=== PATIENT | male | born 1980 | race Caucasian/White ===

== ENCOUNTER 2019-12-17 23:16 | Inpatient (IN) | payer MEDICAID, SELFPAY ==
[2019-12-18] VITALS (15 sets, daily range): BP systolic 92–128; BP diastolic 47–81; PULSE 79–98; RESP 12–20; TEMP 36.1–36.8; O2SAT 95–100; BMI 32.0; BMI 26.6
--- NOTE | 2019-12-18 00:09 | CT_ITS ---
EXAMINATION: CT ABDOMEN AND PELVIS WITHOUT CONTRAST CLINICAL INFORMATION: Left flank pain COMPARISON: None TECHNIQUE: Multidetector volumetric imaging was performed from the superior aspect of the liver through the pubic symphysis. Sagittal and coronal reformatted images were obtained on the technologist's workstation. This CT examination was performed using dose optimization techniques as appropriate, variously including the following: *Automated exposure control *Adjustment of mA and/or kV according to patient size (this includes techniques or standardized protocols for targeted exams where dose is matched to indication/reason for exam; i.e. extremities or head) *Use of iterative reconstruction technique DLP: 443 mGy-cm FINDINGS: LUNG BASES: The visualized lung bases are unremarkable. LIVER, GALLBLADDER, AND BILIARY TREE: The liver is normal in size, shape, and attenuation. No focal hepatic lesion or biliary ductal dilatation is present. Calcification/clips along the posterior margin of the right lobe of the liver inferiorly. The gallbladder is unremarkable with no evidence of radiopaque gallstones, gallbladder wall thickening, or obvious pericholecystic inflammatory changes. PANCREAS: Unremarkable. SPLEEN: Unremarkable. ADRENAL GLANDS: The left adrenal gland is unremarkable. The right adrenal gland is absent. KIDNEYS AND URETERS: Absent right kidney. The left kidney is normal in size. There is mild left hydroureteronephrosis. There is a 0.3 cm calculus at the left ureterovesicular junction. BLADDER: Unremarkable. GASTROINTESTINAL TRACT: The stomach is unremarkable. Normal caliber small bowel. No obstruction. Normal appendix. No colonic wall thickening or inflammatory change. No free air. No free fluid. ABDOMINAL WALL: No significant hernia is appreciated. LYMPH NODES: Normal. VASCULAR: Unremarkable. PELVIC VISCERA: The prostate and seminal vesicles are unremarkable. OSSEOUS STRUCTURES: No acute or suspicious osseous abnormality. Mild scoliotic curvature of the spine. CT/CT abdomen pelvis wo con IMPRESSION: Mild left hydroureteronephrosis with a 0.3 cm obstructing calculus at the ureterovesicular junction.
--- NOTE | 2019-12-18 00:10 | ED.ABDPAIN ---
HPI - Abdominal Pain General Chief Complaint: General Medical Stated Complaint: ?KIDNEY STONES Time Seen by Provider: 12/18/19 00:08 Source: patient Mode of arrival: ambulatory Limitations: no limitations History of Present Illness MD elicited complaint: flank pain Pertinent past history: kidney stones Onset (ago): hour(s) (just past couple of hours) Pain Consistency: constant Location: L flank Severity: moderate Quality: sharp Radiation: LLQ Migration to: no migration Exacerbating factors: nothing Relieving factors: nothing Context: history of similar episodes Associated symptoms: nausea and vomiting Related Data Home Medications Medication Instructions Recorded Confirmed No Known Home Meds 12/18/19 12/18/19 Allergies Allergy/AdvReac Type Severity Reaction Status Date / Time codeine Allergy Itching Verified 12/18/19 00:08 Review of Systems Review of Systems Constitutional : No Fever, No Chills ENT/Mouth : No sore throat Eyes: No Eye Pain, No Swelling, No Redness Cardiovascular : No Chest Pain, No SOB Respiratory : No Cough, No Sputum, No Wheezing Gastrointestinal : positive Nausea, positive Vomiting, No Diarrhea, positive abdominal pain Genitourinary : no Dysuria, no urinary frequency, no Hematuria, positive Flank Pain, positive hesitancy Musculoskeletal : No joint pain, No Myalgias Skin : No Skin Lesions, No rash Neuro : No Weakness, No Numbness, No Headache Psych : No Anxiety/Panic, No Depression Heme/Lymph: No Bruising, No Lymphadenopathy Endocrine : No Polyuria, No Polydipsia All other systems reviewed and are negative Physical Exam Vital Signs: Vital Signs: Vital Signs Temp Pulse Resp BP Pulse Ox 12/18/19 04:45 91 16 105/64 98 12/18/19 02:30 91 16 110/64 98 12/18/19 01:01 81 16 128/81 12/18/19 00:15 88 16 108/66 98 12/18/19 00:11 98 F 85 16 96 Body Mass Index 32.0 Appearance: Alert. Oriented X3. in pain, mild acute distress. Eyes: Pupils equal, round and reactive to light. ENT: Pharynx normal. Neck: Normal inspection. Neck supple. CVS: Normal heart rate and rhythm. Pulses normal. Respiratory: No respiratory distress. Breath sounds normal. Abdomen: Soft and mild left side abdominal ttp Skin: Skin warm and dry. Normal skin color. Normal skin turgor. Extremities: No lower extremity edema. No calf ttp Neuro: Oriented X 3. No motor deficit. No sensory deficit. Course Course Course Narrative: given one kidney and unable to urinate will continue to observe and may need Urology call in AM for extraction, patient aware, pain free. patient did urinate but Cr came back at 2.5 after 1.5L of fluids, denies knowing any prior history of this, records from [facility] requested, call to Urology Dr. Chin at [phone]. Dr. Chin aware will evaluate in ED at 8am plan for stent signed out to Dr. 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 here with L flank pain has a hx of stones, will need labs, UA, IV morphine for pain, CT scan for renal colic, dispo per results and findings Lab Data Result diagrams: 12/18/19 00:23 12/18/19 00:23 Labs: Lab Results 12/18/19 12/18/19 12/18/19 Range/Units 00:23 00:23 00:23 WBC 10.1 (4.8-10.8) X10*3/uL RBC 4.48 L (4.60-5.80) X10*6/uL Hgb 12.8 L (14.0-18.0) g/dl Hct 39.9 L (42-52) % MCV 89.1 (80-98) fL MCH 28.6 (27.0-33.0) pg MCHC 32.1 (31.0-36.0) g/dl RDW 12.3 (11.0-16.0) % Plt Count 245 (160-400) X10*3/uL MPV 10.5 (9.4-12.4) fL Immature Gran % (Auto) 0.2 (0.0-0.4) % Neut % (Auto) 83.8 H (45-73) % Lymph % (Auto) 9.7 L (20-40) % [place] % (Auto) 5.1 (2-11) % Eos % (Auto) 1.1 (0-4) % Baso % (Auto) 0.1 (0-2) % Lymph # (Auto) 1.0 L (1.2-4.9) X10*3/uL [place] # (Auto) 0.5 (0.1-1.2) X10*3/uL Eos # (Auto) 0.1 (0.0-0.4) X10*3/uL Baso # (Auto) 0.0 (0.0-0.2) X10*3/uL Abs Immat Gran (auto) 0.02 (0.00-0.03) X10*3/uL Absolute Neuts (auto) 8.5 H (2.0-8.3) X10*3/uL Absolute Nucleated RBC 0.000 (0.0-0.012) X10*3/uL Nucleated RBC % (auto) 0.0 (0.0-0.2) /100WBC Hold Blue Top SEE NOTE Sodium 140 (135-145) mmol/L Potassium 3.9 (3.3-5.1) mmol/l Chloride 101 (96-108) mmol/L Carbon Dioxide 27 (22-29) mmol/L Anion Gap 16 (12-20) BUN 21 H (9-16) mg/dL Creatinine 2.54 H (0.5-1.4) mg/dL Estim Creat Clear Calc 41.8 Estimated GFR 29 Random Glucose 129 H (60-115) mg/dL Calcium 9.1 (8.4-10.2) mg/dL Magnesium 2.0 (1.6-2.6) mg/dL Total Bilirubin 0.5 (0.0-1.0) mg/dL Direct Bilirubin < 0.2 (0.0-0.5) mg/dL AST 29 (5-37) U/L ALT 58 H (0-40) U/L Alkaline Phosphatase 67 (39-117) U/L Total Protein 7.2 (6.5-8.0) g/dL Albumin 4.3 (3.5-5.0) g/dL Lipase 21 (8-78) U/L Critical Care Time Critical Care Time Critical Care Time: Yes Total Critical Care Time: 35 Attestation: repeat 3L of IVF, IV dilaudid for pain, medical consult I attest to this time spent taking care of the patient. Discharge Plan Discharge Clinical Impression: Ureterolithiasis Acute renal failure Qualifiers: Acute renal failure type: unspecified Qualified Code(s): N17.9 - Acute kidney failure, unspecified Patient Disposition: Admitted As Inpatient Additional Instructions: return to ED for any worsening symptoms or concerns PMFSH Past Medical History Attestation statement: The following information was validated with the patient. Medical History (Updated 12/18/19 @ 06:14 by Luz Jacobs DO) Asthma Renal stones Wilm's tumor (nephroblastoma) Surgical History (Updated 12/18/19 @ 00:11 by Luz Jacobs DO) H/O right nephrectomy Social History Social History (Updated 12/18/19 @ 00:10 by Luz Jacobs DO) Smoking Status: Never smoker Smoked in Last 30 Days: No Use of substances other than those prescribed or required for medical reasons: No Advance Directives: No Advance Directives Information Provided: No
[2019-12-18] MEDS: Morphine Sulfate 4 MG/ML CARTRIDGE IVPUSH (00:30)
[2019-12-18] MEDS: 0.9 % Sodium Chloride 1,000 ML 999 ML IVCONT ×3 (00:31→06:57)
[2019-12-18] MEDS: ondansetron HCL 4 MG/2 ML VIAL IVPUSH (00:31)
[2019-12-18 00:40] LABS: Basophils Percent Auto 0.1 % (0-2); Eosinophils Absolute Auto 0.1 X10*3/uL (0.0-0.4); Eosinophils Percent Auto 1.1 % (0-4); Hematocrit 39.9 % (42-52); Hemoglobin 12.8 g/dl (14.0-18.0); Imm Gran Abs Auto 0.02 X10*3/uL (0.00-0.03); Imm Gran Pct Auto 0.2 % (0.0-0.4); Lymphocytes Percent Auto 9.7 % (20-40); MANUAL DIFF FLAG NO; Mean Corpuscular HGB Conc 32.1 g/dl (31.0-36.0); Mean Corpuscular Hemoglobin 28.6 pg (27.0-33.0); Mean Corpuscular Volume 89.1 fL (80-98); Mean Platelet Volume 10.5 fL (9.4-12.4); Monocytes Absolute Auto 0.5 X10*3/uL (0.1-1.2); Monocytes Percent Auto 5.1 % (2-11); Neutrophils Absolute Auto 8.5 X10*3/uL (2.0-8.3); Neutrophils Percent Auto 83.8 % (45-73); Platelet Count 245 X10*3/uL (160-400); Red Blood Count 4.48 X10*6/uL (4.60-5.80); Red Cell Distribution Width 12.3 % (11.0-16.0); White Blood Count 10.1 X10*3/uL (4.8-10.8)
[2019-12-18 01:06] LABS: Alanine Aminotransferase 58 U/L (0-40); Albumin Level 4.3 g/dL (3.5-5.0); Alkaline Phosphatase 67 U/L (39-117); Aspartate Amino Transferase 29 U/L (5-37); Bilirubin Direct < 0.2 mg/dL (0.0-0.5); Bilirubin Total 0.5 mg/dL (0.0-1.0); Lipase 21 U/L (8-78); Total Protein 7.2 g/dL (6.5-8.0)
[2019-12-18] MEDS: methylPREDNISolone Sod Succ/PF 125 MG/2 ML VIAL 60 MG IVPUSH (02:00)
[2019-12-18] MEDS: Tamsulosin HCL 0.4 MG CAPSULE PO (02:01)
[2019-12-18] MEDS: HYDROmorphone HCl 1 MG/ML SYRINGE IVPUSH (02:35)
--- NOTE | 2019-12-18 05:41 | PC.NURSE ---
PT STATES I HAD TO FORCE OUT URINE. AWARE. .
--- NOTE | 2019-12-18 05:44 | PC.NURSE ---
PT UNABLE TO URINATE AT THIS TIME. PT STATES I FEEL LIKE THERE IS URINE IN MY BLADDER BUT I CAN'T URINATE. AWARE.
[2019-12-18 05:53] LABS: Glucose Urine UA NEG (NEG); Leukocyte Esterase Urine NEG (NEG); Nitrite Urine NEG (NEG); Urine Blood TRACE (NEG); Urine Ketones NEG (NEG); Urine Protein NEG (NEG-TRACE)
[2019-12-18 06:02] LABS: Anion Gap 16 (12-20); Blood Urea Nitrogen 21 mg/dL (9-16); Calcium 9.1 mg/dL (8.4-10.2); Carbon Dioxide 27 mmol/L (22-29); Chloride 101 mmol/L (96-108); Creatinine Clr Calc Pharmacy 41.8; Estimated Glomerular Filt Rate 29; Glucose Random 129 mg/dL (60-115); Potassium 3.9 mmol/l (3.3-5.1); Sodium 140 mmol/L (135-145)
[2019-12-18 06:22] LABS: Appearance Urine CLEAR; Color Urine STRAW
[2019-12-18 06:39] LABS: RBC Urine 0-2 /HPF (0); Squamous Epithelial Cell Urine 1+ /LPF; WBC Urine 0 /HPF (0-4)
[2019-12-18 07:34] LABS: SARS COV2 PCR INHOUSE NEGATIVE (Negative)
--- NOTE | 2019-12-18 08:46 | PC.NURSE ---
DR VILLAFANA WAS AT THE BEDSIDE PLAN IS FOR THE PT TO GO TO THE OR FOR A STENT TODAY PT IS IN AGREEMENT WITH THE PLAN OF CARE
--- NOTE | 2019-12-18 08:59 | PM.HPGS ---
History of Present Illness History of Present Illness Chief complaint: ?KIDNEY STONES Narrative: MITA GEE is a 39 year old male - solitary kidney - left - nephrectomy Right for wilms as child - presents with sudden onset left flank pain - CT 3mm distal stone with moderate hydro - Cr 2.5 - prior stones - thinks has not passed - discussed and plan for left retro, USR, basket and stent Review of Systems Constitutional: Constitutional: Denies chills and Denies fever(s) Cardiovascular: Cardiovascular: Reports no additional cardiovascular complaints and Denies syncope Respiratory: Respiratory: Denies cough Gastrointestinal: Gastrointestinal: Denies abdominal pain, Denies heartburn, Reports nausea and Reports vomiting Genitourinary: Genitourinary: Reports as per HPI and Denies change in libido Musculoskeletal: Musculoskeletal: Reports back pain Neurologic: Denies syncope Psychiatric: Psychiatric: Denies change in libido Endocrine: Endocrine: Denies change in libido [facility] Past Medical History Medical History (Updated 12/18/19 @ 06:14 by Luz Jacobs DO) Asthma Renal stones Wilm's tumor (nephroblastoma) Surgical History Surgical History (Updated 12/18/19 @ 00:11 by Lzu Jacobs DO) H/O right nephrectomy Social History Social History (Updated 12/18/19 @ 00:10 by Luz Jacobs DO) Smoking Status: Never smoker Smoked in Last 30 Days: No Use of substances other than those prescribed or required for medical reasons: No Advance Directives: No Advance Directives Information Provided: No Meds Allergies Allergy/AdvReac Type Severity Reaction Status Date / Time codeine Allergy Itching Verified 12/18/19 00:08 Home Medications Medication Instructions Recorded Confirmed Type No Known Home Meds 12/18/19 12/18/19 History Physical Exam Vital Signs: Vital Signs: Vital Signs Temp Pulse Resp BP Pulse Ox 12/18/19 07:30 98.3 F 85 16 105/72 98 12/18/19 04:45 91 16 105/64 98 12/18/19 02:30 91 16 110/64 98 12/18/19 01:01 81 16 128/81 12/18/19 00:15 88 16 108/66 98 12/18/19 00:11 98 F 85 16 96 Body Mass Index 32.0 Const: General: cooperative, healthy appearing, comfortable and no acute distress Nutritional Appearance: average body habitus Orientation/consciousness: oriented to person, oriented to place and oriented to time Eyes: General: appearance normal, both eyes and all related structures Chest: Chest palpation & inspection: normal inspection of the chest Resp: Effort & Inspection: normal respiratory effort Cardio: Rate: regular rate GI: Inspection: Yes normal to inspection : General: Yes CVA tenderness Back/Spine/Pelvis: Back: CVA tenderness Skin: Hair: normal Neuro: General: oriented to person, oriented to place and oriented to time Extrem: General: Yes normal to inspection Results Results Labs: Short CBC 12/18/19 Range/Units 00:23 WBC 10.1 (4.8-10.8) X10*3/uL Hgb 12.8 L (14.0-18.0) g/dl Hct 39.9 L (42-52) % Plt Count 245 (160-400) X10*3/uL BMP 12/18/19 00:23 Sodium 140 Potassium 3.9 Chloride 101 Carbon Dioxide 27 BUN 21 H Creatinine 2.54 H Calcium 9.1 Liver Function 12/18/19 Range/Units 00:23 Total Bilirubin 0.5 (0.0-1.0) mg/dL Direct Bilirubin < 0.2 (0.0-0.5) mg/dL AST 29 (5-37) U/L ALT 58 H (0-40) U/L Alkaline Phosphatase 67 (39-117) U/L Albumin 4.3 (3.5-5.0) g/dL Urine 12/18/19 Range/Units 05:39 Urine Color STRAW Urine Appearance CLEAR Urine pH 6.0 (5.0-8.0) Ur Specific [place] 1.010 (1.005-1.025) Urine Protein NEG (NEG-TRACE) MG/DL Urine Glucose (UA) NEG (NEG) MG/DL Assessment and Plan (1) Ureterolithiasis: Status: Acute (2) Acute renal failure: Qualifiers: Acute renal failure type: unspecified Qualified Code(s): N17.9 - Acute kidney failure, unspecified Status: Acute Distal left stone Plan for stone intervention - left retrograde, ureteroscopy, laser, stent Risks, benefits and alternatives to therapy were discussed. These include but are not limited to infection, bleeding, damage to local organs and tissues, need for further interventions. Anesthetic risks regarding cardiac arrhythmia, blood clots, and potential mortality were discussed. The patient understands the typical recovery time and the outpatient nature of the procedure. After consideration of these risks the patient gives full informed consent and they wish to move ahead with the procedure.
--- NOTE | 2019-12-18 10:37 | PC.NURSE ---
REPORT GIVEN TO [facility] PREP FOR TRANSFER
--- NOTE | 2019-12-18 10:39 | FL_ITS ---
EXAMINATION: XR FLUOROSCOPY WITH IMAGES CLINICAL INFORMATION: Kidney stone COMPARISON: Previous CT the abdomen and pelvis from earlier the same day TECHNIQUE: Fluoroscopy performed by Dr. Chin. Fluoroscopy time: 12.3 seconds Dose 3 mgy Images: 1 FINDINGS: Fluoroscopy guidance was provided for left internal ureteral stent placement. Single image demonstrates the proximal portion of a left internal ureteral stent. FL/FL guidance in OR IMPRESSION: Fluoroscopy guidance for left internal ureteral stent placement.
--- NOTE | 2019-12-18 10:57 | PC.NURSE ---
called floor to let the rn getting this pt he has gone to the or pt has left the ed
[2019-12-18] MEDS: levoFLOXacin 500 MG TABLET PO (11:11)
--- NOTE | 2019-12-18 11:15 | HO.ANESPROP2 ---
HPI - Anesthesia Eval Consult details Narrative: 39yo patient here for cysto, Left retrograde, ureteroscopy, laser, stent Left ureter PMFSH Past Medical History Medical History (Updated 12/18/19 @ 06:14 by Luz Jacobs DO) Asthma Renal stones Wilm's tumor (nephroblastoma) Family History Family history of problems with anesthesia: No Surgical History Surgical History (Updated 12/18/19 @ 00:11 by Luz Jacobs DO) H/O right nephrectomy History of Problems with Anesthesia: No Social History Social History (Updated 12/18/19 @ 00:10 by Luz Jacobs DO) Smoking Status: Never smoker Smoked in Last 30 Days: No Use of substances other than those prescribed or required for medical reasons: No Advance Directives: No Advance Directives Information Provided: No Meds Allergies Allergy/AdvReac Type Severity Reaction Status Date / Time codeine Allergy Itching Verified 12/18/19 00:08 Home Medications Medication Instructions Recorded Confirmed Type No Known Home Meds 12/18/19 12/18/19 History Exam Exam Date and Time: December 18, 2019 1115 Height,Weight and Vital Signs: Height 5 ft 6 in Weight 74.843 kg Last Vital Signs Temp 98 F 12/18/19 10:57 Pulse 80 12/18/19 10:57 Resp 18 12/18/19 10:57 BP 110/67 12/18/19 10:57 Pulse Ox 97 12/18/19 10:57 Pertinent Lab Results Pertinent Lab Results: Laboratory Tests 12/18/19 12/18/19 12/18/19 00:23 00:23 00:23 WBC 10.1 RBC 4.48 L Hgb 12.8 L Hct 39.9 L MCV 89.1 MCH 28.6 MCHC 32.1 RDW 12.3 Plt Count 245 MPV 10.5 Immature Gran % (Auto) 0.2 Neut % (Auto) 83.8 H Lymph % (Auto) 9.7 L [place] % (Auto) 5.1 Eos % (Auto) 1.1 Baso % (Auto) 0.1 Lymph # (Auto) 1.0 L [place] # (Auto) 0.5 Eos # (Auto) 0.1 Baso # (Auto) 0.0 Abs Immat Gran (auto) 0.02 Absolute Neuts (auto) 8.5 H Absolute Nucleated RBC 0.000 Nucleated RBC % (auto) 0.0 Hold Blue Top SEE NOTE Sodium 140 Potassium 3.9 Chloride 101 Carbon Dioxide 27 Anion Gap 16 BUN 21 H Creatinine 2.54 H Estim Creat Clear Calc 41.8 Estimated GFR 29 Random Glucose 129 H Calcium 9.1 Magnesium 2.0 Total Bilirubin 0.5 Direct Bilirubin < 0.2 AST 29 ALT 58 H Alkaline Phosphatase 67 Total Protein 7.2 Albumin 4.3 Lipase 21 Urine Color Urine Appearance Urine pH Ur Specific [place] Urine Protein Urine Glucose (UA) Urine Ketones Urine Blood Urine Nitrite Ur Leukocyte Esterase Urine RBC Urine WBC Ur Squamous Epith Cells Urine Bacteria Coronavirus (PCR) 12/18/19 12/18/19 05:39 06:31 WBC RBC Hgb Hct MCV MCH MCHC RDW Plt Count MPV Immature Gran % (Auto) Neut % (Auto) Lymph % (Auto) [place] % (Auto) Eos % (Auto) Baso % (Auto) Lymph # (Auto) [place] # (Auto) Eos # (Auto) Baso # (Auto) Abs Immat Gran (auto) Absolute Neuts (auto) Absolute Nucleated RBC Nucleated RBC % (auto) Hold Blue Top Sodium Potassium Chloride Carbon Dioxide Anion Gap BUN Creatinine Estim Creat Clear Calc Estimated GFR Random Glucose Calcium Magnesium Total Bilirubin Direct Bilirubin AST ALT Alkaline Phosphatase Total Protein Albumin Lipase Urine Color STRAW Urine Appearance CLEAR Urine pH 6.0 Ur Specific [place] 1.010 Urine Protein NEG Urine Glucose (UA) NEG Urine Ketones NEG Urine Blood TRACE Urine Nitrite NEG Ur Leukocyte Esterase NEG Urine RBC 0-2 Urine WBC 0 Ur Squamous Epith Cells 1+ Urine Bacteria NONE Coronavirus (PCR) NEGATIVE Airway Mallampati Class: II TM Dist: >3cm Neck ROM: Full Heart: RRR + ? systolic murmur Lungs: CTAB Assessment and Plan Assessment Anesthesia Assessment: Anesthesia Plan Discussed and Chart Reviewed Final Anesthetic Review NPO: Yes (Water about 5am) ASA Class: III Final Preanesthetic Review: No Changes in Pt Med Stat, Meds/Allgs Chart Reviewed, Consent Obtained/Reviewed and Anes Risks/Benef Reviewed Patient Risk: Intermediate Procedure Risk: Low Anesthetic Plan Anesthetic Plan: GA Disposition: Standard PACU and Inp. Admit - Standard Bed
--- NOTE | 2019-12-18 11:57 | MHC.SHP ---
Pre-Procedural Eval Section A The patient is an INPATIENT: Yes Changes since office visit: No Cold of Flu in the past 2 weeks, No New Medical Problems, No Changes in Medication and No Patient answered all questions The History & Physical has been completed within 30 days and I have reviewed it.: Yes Section B Chief Complaint: NEPHROLITHIASIS Allergies: Allergies Allergy/AdvReac Type Severity Reaction Status Date / Time codeine Allergy Itching Verified 12/18/19 00:08 Plan Patient has been examined and remains a candidate for the planned procedure
--- NOTE | 2019-12-18 12:29 | PM.OP ---
Brief Operative Note Date of procedure: 12/18/19 Pre-op diagnosis: left distal ureteric stone Post-op diagnosis: same Procedure: left retrograde, USR, basket, stent Implants: 6x24cm JJ Surgeon: Kodi Chin MD Anesthesia: GLMA Estimated blood loss (mL): 0 Pathology: other (stone) Condition: stable Disposition: same day
--- NOTE | 2019-12-18 12:30 | W.PM.OPN ---
Operative Note Operative Note Narrative: PreOperative Diagnosis: left sistal stone Post Operative Diagnosis: same Procedure: - cystoscopy, retrograde - dilatation of ureteric orifice under fluoroscopy - ureteroscopy, stone basketing - stent placement Surgeon: Dr Kodi Chin Anesthesia: General Indications for procedure: 39 solitary kidney distal left stone with mild hydro Procedure: After informed consent was verified patient was brought to the operating placed in supine position. Anesthesia was administered per protocol. Patient was placed in modified dorsal lithotomy position and prepped and draped in a sterile fashion. Safety pause time-out and side of surgery confirmed. Antibiotics confirmed. 21 Fr cysto per urethra - NAD Bulging left distal UO Fluro stone visible - retro performed. Sensor guidewire placed Dilate with Deshaun dilator Rigid USr - encounter small stone - basket and remove 6x24 cm stent placed Tolerated procedure extubate OR Pathology: stone Drains: 6x24 cm stent JJ
[2019-12-18] MEDS: Phenazopyridine HCL 100 MG TABLET PO (13:16)
== END 2019-12-18 14:00 | disposition home or self-care (01) | DRG 465 ==
LOC: HO.ED 12-18 10:36 → HO.S3 12-18 10:44
PROVIDERS: Admitting Provider Urology; Emergency Provider Emergency Medicine; Visit Provider Urology
PROC: 0T778DZ Dilation of Left Ureter with Intraluminal Device, Via Natural or Artificial Opening Endoscopic (ICD-10-PCS; CPT 52352; principal; 2019-12-18 11:30)
DX: N20.1 Calculus of ureter (principal); Z20.828 Contact with and (suspected) exposure to other viral communicable diseases; Z90.5 Acquired absence of kidney
CPT/HCPCS: 52352; 52332; 36415; 74176; 80048; 80076; 81001; 81003; 82365; 83690; 83735; 85025; 88300; 96361; 96374; 96375; 99284; 99291; C1769; C2617; J1100; J1170; J2250; J2270; J2405; J2930; J3010; Q9967; U0003

== ENCOUNTER → 2019-12-30 12:40 | Outpatient (BNVA) | payer MEDICAID, SELFPAY | PROVIDERS: Visit Provider Urology | DX: Z48.816 Encounter for surgical aftercare following surgery on the genitourinary system (principal); Q60.0 Renal agenesis, unilateral; Z87.442 Personal history of urinary calculi | CPT/HCPCS: 51798; 52000; 52310; 99212 ==

== ENCOUNTER 2020-04-25 09:35 | Emergency (ER) | payer MEDICAID, SELFPAY ==
[2020-04-25 09:44] VITALS: BP 111/79; PULSE 97; RESP 16; TEMP 36.8; O2SAT 97; BMI 27.6
--- NOTE | 2020-04-25 09:58 | ED_ITS ---
HPI - Eye Problem General Chief complaint: Eye Problems Stated complaint: pink eye? Time Seen by Provider: 04/25/20 09:52 Source: patient Mode of arrival: ambulatory Limitations: no limitations History of Present Illness chief complaint: eye redness Onset (ago): day(s) (One day) Onset description: gradual Duration: constant and progressively worsening Location: both eyes Eye Symptoms: burning, redness, itching, discharge and decreased vision Place: home Mechanism: other (While showering had soap in his eye on Saturday try to wash it out and woke up on Saturday with discharge and redness) Severity: moderate If Pain, Quality: burning Associated symptoms: none Treatments Prior to Arrival: irrigated eye Related Data Previous Rx's Medication Instructions Recorded phenazopyridine [Pyridium] 100 mg PO TID PRN 4 Days #12 tab 12/18/19 tamsulosin 0.4 mg PO BEDTIME #14 cap 12/18/19 tramadol 50 mg PO Q6H PRN #14 tab 12/18/19 erythromycin 1 appl OPHTHALMIC (EYE) DAILY 5 04/25/20 Days #3.5 g Allergies Allergy/AdvReac Type Severity Reaction Status Date / Time codeine Allergy Itching Verified 12/18/19 00:08 Review of Systems Review of Systems: Constitutional : No fevers, no chills, No changes in activity, No lethargy, No recent prior head injury, No agitation, No increased fussiness ENT/Mouth : No Ear Pain, No Nasal discharge/drainage Eyes: + Vision changes/blurry/decreased vision, + Redness/discharge/drainage/itching, No Foreign Body, No Photophobia, no eyelid edema, no contact lens uses, no recent welding, no bleeding, No Eye Pain, No Swelling Cardiovascular : No Chest Pain, No SOB Respiratory : No Cough Gastrointestinal : No Nausea, No Vomiting, No abdominal Pain Genitourinary : No Dysuria, No Urinary Frequency, No Urinary Incontinence, No Urgency, No Flank Pain Musculoskeletal : No joint pain, No neck stiffness, No back pain/injury Skin : No lacerations Neuro : No unsteady gait, No Paresthesias, No Loss of Consciousness, No altered mental status, No dizziness, No Headache Denies past medical history of HIV, recent trauma, coagulopathy, recent spinal/ epidural procedure, new medication, URI symptoms, close contacts with similar symptoms, tick bite, or known CO2 exposure. Yes all other systems are reviewed and are negative [facility] Past Medical History Attestation statement: The following information was validated with the patient. Medical History Asthma Renal stones Wilm's tumor (nephroblastoma) Surgical History H/O right nephrectomy Social History Social History Smoking Status: Never smoker Smoked in Last 30 Days: No Use of substances other than those prescribed or required for medical reasons: No Advance Directives: No Advance Directives Information Provided: No Physical Exam Vital Signs: Vital Signs: Last Vital Signs Temp 98.3 F 04/25/20 09:44 Pulse 97 04/25/20 09:44 Resp 16 04/25/20 09:44 BP 111/79 04/25/20 09:44 Pulse Ox 97 04/25/20 09:44 Body Mass Index 27.6 vital signs have been reviewed as normal and appeared to be correct. Blood pressure normal. Heart rate normal. Respiration rate normal. Temperature normal. Oxygen saturation normal. Appearance: Alert. Oriented X3. No acute distress. Head: Normal external exam. Normocephalic. Atraumatic. No Benjamin signs noted. No raccoon eyes noted Eyes: PERRLA. EOMI. Sclera and conjunctiva erythematous with purulent drainage consistent with bacterial conjunctivitis. Cornea are normal. Funduscopic exam within normal limits. Eyelids normal. No papilledema noted. Anterior chamber normal. No photophobia noted. See nurse's notes for visual acuity. ENT: EAC normal. TM's Normal. Pharynx normal. Uvula midline. Moist mucous membranes. Neck: Normal inspection. Neck supple. FROM. No adenopathy. Thyroid Normal. No meningeal signs. No neck mass noted. CVS: Normal heart rate and rhythm. Heart sound normal. No murmurs noted. Pulses normal throughout. Respiratory: No respiratory distress. Painless inspiration. Breath sounds normal. Back: Full range of motion noted. Skin: Skin warm and dry. Normal skin color. Normal skin turgor. No rashes/lesions/lacerations noted. Extremities: No lower extremity edema. Extremities exhibit normal range of motion. Extremities nontender. Neuro: Oriented X 3. No motor deficit. No sensory deficit. Reflexes normal. MDM - Eye Problem Differential Diagnosis Differential diagnosis: Likely corneal abrasion, conjunctivitis and periorbital cellulitis Medical Records Attestation: I reviewed the patient's medical records. Discharge Plan Discharge Clinical Impression: Bacterial conjunctivitis Patient Disposition: Home, Self-Care Instructions: Conjunctivitis (ED) Prescriptions: New erythromycin 5 mg/gram (0.5 %) ointment 1 appl ophthalmic (eye) DAILY 5 Days Qty: 3.5 RF: 0 No Action tramadol 50 mg tablet 50 mg PO Q6H PRN (Reason: pain (scale score 4-6)) Qty: 14 RF: 0 tamsulosin 0.4 mg capsule 0.4 mg PO BEDTIME Qty: 14 RF: 0 phenazopyridine [Pyridium] 100 mg tablet 100 mg PO TID PRN (Reason: spasm) 4 Days Qty: 12 RF: 0 Referrals: Abhinav Campbell [Physician] - 1 week Stand Alone Forms: Work/School Release Print Language: Syriac
[2020-04-25] MEDS: Erythromycin Base 0.5% Oph Oin 1 GM TUBE 1 CM EYE-BOTH (10:06)
== END 2020-04-25 10:16 | disposition home or self-care (01) ==
PROVIDERS: Emergency Provider Emergency Medicine
DX: H10.89 Other conjunctivitis (principal)
CPT/HCPCS: 99283; 99284

== ENCOUNTER 2020-04-26 13:05 | Emergency (ER) | payer MEDICAID, SELFPAY ==
[2020-04-26 13:06] VITALS: BP 128/75; PULSE 97; RESP 18; TEMP 36.8; O2SAT 100; BMI 27.1
--- NOTE | 2020-04-26 13:23 | PC.NURSE ---
AMBULATORY W/STEADY GAIT TO [facility], LIGHTS LOWERED FOR COMFORT
[2020-04-26] MEDS: Fluorescein Sodium STRIP 2 STRIP EYE-LEFT (14:07)
[2020-04-26] MEDS: Tetracaine HCl/PF 0.5% Oph Sol 4 ML DROPS 1 DROP EYE-BOTH (14:07)
--- NOTE | 2020-04-26 14:47 | ED.EYEPROB ---
HPI - Eye Problem General Chief complaint: Eye Problems Stated complaint: EYE ISSUE Time Seen by Provider: 04/26/20 13:59 History of Present Illness HPI Narrative: Patient who is being treated for conjunctivitis with erythromycin ointment complains of increased discomfort in the left eye which she has been rubbing out a lot and now redness and irritation in the right eye Related Data Previous Rx's Medication Instructions Recorded phenazopyridine [Pyridium] 100 mg PO TID PRN 4 Days #12 tab 12/18/19 tamsulosin 0.4 mg PO BEDTIME #14 cap 12/18/19 tramadol 50 mg PO Q6H PRN #14 tab 12/18/19 erythromycin 0.5 inch OPHTHALMIC (EYE) QID #3.5 04/25/20 g ciprofloxacin HCl [Ciloxan] See Rx Instructions .ROUTE 04/26/20 .COMPLEX #10 ml Allergies Allergy/AdvReac Type Severity Reaction Status Date / Time codeine Allergy Itching Verified 12/18/19 00:08 Review of Systems Review of Systems: Bilateral eye discharge and redness and itchiness, and left eye pain No dizziness no weakness no fever no chills no vision loss no photophobia no neck pain no shortness of breath no rashes no numbness or weakness PMFSH Past Medical History PMFSH Narrative: Patient was seen here for left eye redness and discharge and put on erythromycin 3 days ago Source: nursing notes reviewed Medical History Asthma Renal stones Wilm's tumor (nephroblastoma) Surgical History H/O right nephrectomy Social History Social History Smoking Status: Never smoker Advance Directives: No Advance Directives Information Provided: No Physical Exam Vital Signs: Vital Signs: Last Vital Signs Temp 98.2 F 04/26/20 13:06 Pulse 97 04/26/20 13:06 Resp 18 04/26/20 13:06 BP 128/75 04/26/20 13:06 Pulse Ox 100 04/26/20 13:06 Body Mass Index 27.1 General appearance no acute distress relaxed and cooperative Head is normocephalic atraumatic The visual acuity is 2020 bilaterally The right eye has some conjunctival redness and some discharge The left eye had significant conjunctival redness, with discharge as well as injection of the sclera, after staining of corneal abrasion in the 12 o'clock position is identified Pupils equal round react to light, extraocular motions intact, no photophobia Skin no rashes Neuro no focal deficit Course Course Course Narrative: As symptoms have progressed from left eye to right eye despite using his erythromycin I started a stronger antibiotic ciloxan Patient had normal vision, all pain in his eye was relieved with the drops and pain in the left eye is most likely secondary to his corneal abrasion he will follow with eye doctor Discharge Plan Discharge Clinical Impression: Bacterial conjunctivitis Corneal abrasion Qualifiers: Encounter type: initial encounter Laterality: left Qualified Code(s): S05.02XA - Injury of conjunctiva and corneal abrasion without foreign body, left eye, initial encounter Patient Disposition: Home, Self-Care Additional Instructions: On exam you now have a small scratch to the cornea of the left eye which would make it much more uncomfortable, the left eye is still very red with discharge and now the right eye is very red to So we will change the antibiotic ointment to stronger Cipro drops Follow with eye doctor if available later this week if not better Return to ER any time for vision loss, worsening pain, any worse condition or any concerns Prescriptions: New ciprofloxacin HCl [Ciloxan] 0.3 % drops See Rx Instructions .ROUTE .COMPLEX Qty: 10 RF: 0 No Action tramadol 50 mg tablet 50 mg PO Q6H PRN (Reason: pain (scale score 4-6)) Qty: 14 RF: 0 tamsulosin 0.4 mg capsule 0.4 mg PO BEDTIME Qty: 14 RF: 0 phenazopyridine [Pyridium] 100 mg tablet 100 mg PO TID PRN (Reason: spasm) 4 Days Qty: 12 RF: 0 erythromycin 5 mg/gram (0.5 %) ointment 0.5 inch ophthalmic (eye) QID Qty: 3.5 RF: 0 Referrals: Abhinav Campbell [Physician] - 2 days (Second visit for worsening conjunctivitis and now a corneal abrasion in the left eye from rubbing, changed antibiotic from erythromycin ointment to Cipro) Stand Alone Forms: Work/School Release Interventions: ED Discharge Assessment Last Done: 04/26/20 15:19 Discharge Date/Time: 04/26/20 14:55
== END 2020-04-26 14:55 | disposition home or self-care (01) ==
PROVIDERS: Emergency Provider Emergency Medicine Emergency Medical Services; PCP Nurse Practitioner Adult Health
DX: S05.02XA Injury of conjunctiva and corneal abrasion without foreign body, left eye, initial encounter (principal); H10.32 Unspecified acute conjunctivitis, left eye; H57.12 Ocular pain, left eye; X58.XXXA Exposure to other specified factors, initial encounter; Y93.9 Activity, unspecified; Y92.9 Unspecified place or not applicable; Y99.9 Unspecified external cause status; Z79.899 Other long term (current) drug therapy
CPT/HCPCS: 99283

== ENCOUNTER 2020-05-08 15:05 | Emergency (ER) | payer MEDICAID, SELFPAY ==
--- NOTE | ~2020-05-08 | XR_ITS ---
EXAMINATION: XR SOFT TISSUE NECK CLINICAL INDICATION: Lump on left side of throat/mandible. COMPARISON: None. TECHNIQUE: 2 views of the soft tissue neck were obtained. FINDINGS: Soft tissue films of the neck demonstrate a normal larynx, pharynx and upper trachea. No radiopaque foreign body. Partial calcification of the thyroid cartilage. XR/XR soft tissue neck IMPRESSION: Unremarkable examination. There is persistent clinical concern, CT of the neck could help further evaluate.
[2020-05-08 15:36] VITALS: BP 133/77; PULSE 115; RESP 18; TEMP 36.9; O2SAT 96; BMI 27.9
--- NOTE | 2020-05-08 16:26 | ED.GENADULT ---
HPI - General Adult General Chief complaint: Neck Pain/Injury Stated complaint: lump in neck Time Seen by Provider: 05/08/20 16:13 History of Present Illness HPI narrative: Patient complains of small lump on left side of neck under the chin that is mildly uncomfortable but it has been swelling and then going back to normal over past several days, there is no sore throat there is no difficulty breathing or swallowing, no shortness of breath, it seems to swell more when the patient eats Related Data Previous Rx's Medication Instructions Recorded phenazopyridine [Pyridium] 100 mg PO TID PRN 4 Days #12 tab 12/18/19 tamsulosin 0.4 mg PO BEDTIME #14 cap 12/18/19 tramadol 50 mg PO Q6H PRN #14 tab 12/18/19 erythromycin 0.5 inch OPHTHALMIC (EYE) QID #3.5 04/25/20 g ciprofloxacin HCl [Ciloxan] See Rx Instructions .ROUTE 04/26/20 .COMPLEX #10 ml amoxicillin 500 mg PO TID 7 Days #21 cap 05/08/20 ibuprofen 600 mg PO Q6H PRN #20 tab 05/08/20 Allergies Allergy/AdvReac Type Severity Reaction Status Date / Time codeine Allergy Itching Verified 12/18/19 00:08 Review of Systems Review of Systems: Positive for lump under the chin Negatives are no fever no chills no dizziness no weakness no headache no neck pain no difficulty breathing or swallowing no chest pain no shortness of breath no palpitations no nausea no vomiting no skin rash no numbness or weakness PMFSH Past Medical History Source: nursing notes reviewed Medical History Asthma Renal stones Wilm's tumor (nephroblastoma) Surgical History H/O right nephrectomy Social History Social History Smoking Status: Never smoker Advance Directives: No Advance Directives Information Provided: No Physical Exam Vital Signs: Vital Signs: Last Vital Signs Temp 98.4 F 05/08/20 15:36 Pulse 96 05/08/20 17:03 Resp 18 05/08/20 15:36 BP 133/77 05/08/20 15:36 Pulse Ox 96 05/08/20 15:36 Body Mass Index 27.9 General appearance comfortable relaxed and cooperative NAD, a and O x3 The head is normocephalic atraumatic Both ears are normal with pink tympanic membranes no redness, canals are normal The nose there is no sinus tenderness The pharynx is clear without swelling redness or exudate, mucous membranes are moist Neck exam there is a mobile small nodule in the left sub maxillary area is mildly tender there is no redness or warmth, skin is normal color there is no impairment of breathing or swallowing, voice is normal there is no stridor, no drooling no trismus, there is no dental tenderness or dental abscess The neck is supple The chest is clear to auscultation with full symmetric equal breath sounds, no respiratory distress The heart rate and rhythm regular no murmur Skin no rashes Neuro no focal deficit Course Course Course Narrative: Patient pulse on arrival was 115 and this was noted, he had no shortness of breath or difficulty breathing or palpitations and when I rechecked it by hand his pulse was 96 The mobile nodule in the neck could be a lymph node, could also be a submandibular gland or salivary gland and because of the correlation with increased swelling after eating we started lemon drops and patient will follow with his doctor but will return here if there is any increased swelling or increased pain or redness or difficulty swallowing or breathing Discharge Plan Discharge Clinical Impression: Lymphadenopathy of left cervical region Patient Disposition: Home, Self-Care Instructions: Sialoadenitis (ED) Additional Instructions: Right now this looks like either a lymph node, or a salivary gland blockage It is likely to be a salivary blockage as it is changing in size and is associated with eating To clear it the best plan is to chew on sour candies frequently to provoke saliva which should clear the duct, so far suck on sour sour candies We started penicillin antibiotic and Motrin is now anti-inflammatory Most important if swelling increases or you would develop any worsening pain, difficulty breathing or swallowing, or spreading redness or difficulty speaking or any worse condition or any concerns return to the ER Prescriptions: New amoxicillin 500 mg capsule 500 mg PO TID 7 Days Qty: 21 RF: 0 ibuprofen 600 mg tablet 600 mg PO Q6H PRN (Reason: pain) Qty: 20 RF: 0 No Action ciprofloxacin HCl [Ciloxan] 0.3 % drops See Rx Instructions .ROUTE .COMPLEX Qty: 10 RF: 0 tramadol 50 mg tablet 50 mg PO Q6H PRN (Reason: pain (scale score 4-6)) Qty: 14 RF: 0 tamsulosin 0.4 mg capsule 0.4 mg PO BEDTIME Qty: 14 RF: 0 phenazopyridine [Pyridium] 100 mg tablet 100 mg PO TID PRN (Reason: spasm) 4 Days Qty: 12 RF: 0 erythromycin 5 mg/gram (0.5 %) ointment 0.5 inch ophthalmic (eye) QID Qty: 3.5 RF: 0 Interventions: ED Discharge Assessment Last Done: 05/08/20 17:10 Discharge Date/Time: 05/08/20 17:12
[2020-05-08 17:03] VITALS: PULSE 96
== END 2020-05-08 17:12 | disposition home or self-care (01) ==
PROVIDERS: Emergency Provider Emergency Medicine; PCP Nurse Practitioner Adult Health
DX: R59.1 Generalized enlarged lymph nodes (principal); J45.909 Unspecified asthma, uncomplicated; Z87.442 Personal history of urinary calculi
CPT/HCPCS: 70360; 99283

== ENCOUNTER 2020-05-16 10:25 | Emergency (ER) | payer MEDICAID, SELFPAY ==
--- NOTE | ~2020-05-16 | XR_ITS ---
EXAMINATION: XR CHEST CLINICAL INFORMATION: Chest pain COMPARISON: Previous chest x-ray most recent January 2019 TECHNIQUE: Frontal view of the chest was obtained. FINDINGS: No significant abnormality is noted involving the heart, lungs, mediastinum, bony thorax or soft tissues. XR/XR chest 1V IMPRESSION: Unremarkable examination.
[2020-05-16 10:35] VITALS: BP 125/82; PULSE 95; RESP 20; TEMP 37; O2SAT 96; BMI 27.9
--- NOTE | 2020-05-16 10:37 | ECG_ITS ---
Test Reason : CHEST PAIN Blood Pressure : / mmHG Vent. Rate : 090 BPM Atrial Rate : 090 BPM P-R Int : 122 ms QRS Dur : 082 ms QT Int : 362 ms P-R-T Axes : 067 028 033 degrees QTc Int : 442 ms Normal sinus rhythm Nonspecific T wave abnormality Abnormal ECG No previous ECGs available Referred By: Jennifer Vaughn Electronically Signed By:Julio César Abad
[2020-05-16 10:56] LABS: MANUAL DIFF FLAG NO
[2020-05-16 11:01] LABS: Basophils Percent Auto 0.3 % (0-2); Eosinophils Absolute Auto 0.1 X10*3/uL (0.0-0.4); Eosinophils Percent Auto 1.8 % (0-4); Hematocrit 46.5 % (42-52); Hemoglobin 15.5 g/dl (14.0-18.0); Imm Gran Abs Auto 0.02 X10*3/uL (0.00-0.03); Imm Gran Pct Auto 0.3 % (0.0-0.4); Lymphocytes Absolute Auto 1.4 X10*3/uL (1.2-4.9); Lymphocytes Percent Auto 20.1 % (20-40); Mean Corpuscular HGB Conc 33.3 g/dl (31.0-36.0); Mean Corpuscular Hemoglobin 29.2 pg (27.0-33.0); Mean Corpuscular Volume 87.7 fL (80-98); Mean Platelet Volume 10.9 fL (9.4-12.4); Monocytes Absolute Auto 0.6 X10*3/uL (0.1-1.2); Monocytes Percent Auto 8.2 % (2-11); Neutrophils Absolute Auto 4.6 X10*3/uL (2.0-8.3); Neutrophils Percent Auto 69.3 % (45-73); Platelet Count 260 X10*3/uL (160-400); Red Cell Distribution Width 12.2 % (11.0-16.0); White Blood Count 6.7 X10*3/uL (4.8-10.8)
[2020-05-16 11:02] LABS: Glucose Urine UA NEG (NEG); Leukocyte Esterase Urine NEG (NEG); Nitrite Urine NEG (NEG); Urine Blood NEG (NEG); Urine Ketones NEG (NEG); Urine Protein NEG (NEG-TRACE)
[2020-05-16 11:03] LABS: Appearance Urine CLEAR; Color Urine YELLOW
--- NOTE | 2020-05-16 11:06 | ED.CHESTPAIN ---
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 He states it occurs when at rest or with exertion, lasts a few minutes and then subsides. He has no current chest pain. He denies SOB, nausea, abdominal pain, fever, chills, body aches. He has been using his asthma inhaler as directed without any worsening asthma symptoms beyond his baseline. He reports history of chest pain like this when he was younger. He thinks it may be due to anxiety and stress at work, it was happening more at work over the weekend so he came to get evaluated today. <HUY Lorenz - Last Filed: 05/16/20 15:21> MD complaint: chest pain <HUY Lorenz - Last Filed: 05/16/20 15:21> Pertinent past history: asthma <HUY Lorenz - Last Filed: 05/16/20 15:21> Onset (ago): day(s) (2) <HUY Lorenz - Last Filed: 05/16/20 15:21> Timing of current episode: episodic <HUY Lorenz - Last Filed: 05/16/20 15:21> Prior episodes: Yes <HUY Lorenz - Last Filed: 05/16/20 15:21> Onset: during rest and during exertion <HUY Lorenz - Last Filed: 05/16/20 15:21> Pain location: left chest <HUY Lorenz - Last Filed: 05/16/20 15:21> Pain radiation: none <HUY Lorenz - Last Filed: 05/16/20 15:21> Severity: moderate <HUY Lorenz - Last Filed: 05/16/20 15:21> Quality: sharp <HUY Lorenz - Last Filed: 05/16/20 15:21> Relieving factors: rest <HUY Lorenz - Last Filed: 05/16/20 15:21> Exacerbating factors: nothing <HUY Lorenz - Last Filed: 05/16/20 15:21> Treatment prior to arrival: none <HUY Lorenz - Last Filed: 05/16/20 15:21> Risk Factors Coronary artery disease risk factors: none <HUY Lorenz - Last Filed: 05/16/20 15:21> Thoracic aortic dissection risk factors: none <HUY Lorenz - Last Filed: 05/16/20 15:21> Related Data Home Medications: Previous Rx's Medication Instructions Recorded phenazopyridine [Pyridium] 100 mg PO TID PRN 4 Days #12 tab 12/18/19 tamsulosin 0.4 mg PO BEDTIME #14 cap 12/18/19 tramadol 50 mg PO Q6H PRN #14 tab 12/18/19 erythromycin 0.5 inch OPHTHALMIC (EYE) QID #3.5 04/25/20 g ciprofloxacin HCl [Ciloxan] See Rx Instructions .ROUTE 04/26/20 .COMPLEX #10 ml amoxicillin 500 mg PO TID 7 Days #21 cap 05/08/20 ibuprofen 600 mg PO Q6H PRN #20 tab 05/08/20 <HUY Lorenz - Last Filed: 05/16/20 15:21> Allergies/Adverse Reactions: Allergies Allergy/AdvReac Type Severity Reaction Status Date / Time codeine Allergy Itching Verified 05/16/20 10:37 <HUY Lorenz - Last Filed: 05/16/20 15:21> Review of Systems Review of Systems: Constitutional: No Fever, No Chills ENT/Mouth: No sore throat, No Rhinorrhea, No Swallowing Difficulty Eyes: No Eye Pain, No Swelling, No Redness Cardiovascular: + Chest Pain, No SOB, No Orthopnea, No Edema Respiratory: No Cough, No Sputum, No Wheezing, No dyspnea Gastrointestinal: No Nausea, No Vomiting, No Diarrhea, No abdominal Pain Genitourinary: No Dysuria, No Urinary Frequency, No Hematuria Musculoskeletal: No joint pain, No Myalgias Skin: No Skin Lesions, No rash Neuro: No Weakness, No Numbness, No Dizziness, No Headache Heme/Lymph: No Bruising, No Lymphadenopathy <HUY Lorenz - Last Filed: 05/16/20 15:21> [facility] Past Medical History Attestation statement: The following information was validated with the patient. <HUY Lorenz - Last Filed: 05/16/20 15:21> Medical History: Medical History Asthma Renal stones Wilm's tumor (nephroblastoma) <HUY Lorenz - Last Filed: 05/16/20 15:21> Surgical History: Surgical History H/O right nephrectomy <HUY Lorenz - Last Filed: 05/16/20 15:21> Social History Social History: Social History Smoking Status: Never smoker Smoked in Last 30 Days: No Use of substances other than those prescribed or required for medical reasons: No Advance Directives: Yes Advance Directives Information Provided: Yes Advance Directives on File: No <HUY Lorenz - Last Filed: 05/16/20 15:21> Physical Exam Vital Signs: Vital Signs: Last Vital Signs Temp 98.6 F 05/16/20 10:35 Pulse 81 05/16/20 12:00 Resp 21 H 05/16/20 12:00 BP 115/72 05/16/20 12:00 Pulse Ox 97 05/16/20 12:00 Body Mass Index 27.9 Appearance: Alert. Oriented X3. No acute distress. Eyes: Pupils equal, round and reactive to light. ENT: Pharynx normal. Neck: Normal inspection. Neck supple. CVS: Normal heart rate and rhythm. Pulses normal. Respiratory: No respiratory distress. Breath sounds normal. No palpable chest wall tenderness Abdomen: Soft and nontender. +BS x4 Skin: Skin warm and dry. Normal skin color. Normal skin turgor. No rashes. Extremities: No lower extremity edema. Negative Roman's sign Neuro: Oriented X 3. No motor deficit. No sensory deficit. <HUY Lorenz - Last Filed: 05/16/20 15:21> Vital Signs: Last Vital Signs Temp 98.6 F 05/16/20 10:35 Pulse 81 05/16/20 12:00 Resp 21 H 05/16/20 12:00 BP 115/72 05/16/20 12:00 Pulse Ox 97 05/16/20 12:00 Body Mass Index 27.9 <Cirilo Forrest MD - Last Filed: 06/03/20 13:32> Course Course Course Narrative: 40 y/o male presenting with intermittent left sided chest pain the last few days. No other symptoms. Exam is benign and he has no current pain. Possibly stress and anxiety related with increased demands at work. He is PERC negative. Will get basic cardiac workup including EKG, CXR and troponin. Will reassess. <HUY Lorenz - Last Filed: 05/16/20 15:21> I have reviewed the chart <Cirilo Forrest MD - Last Filed: 06/03/20 13:32> Reevaluation(s) Reevaluation #1: Lab workup showing only mild elevated troponin 6.9, will get 3 hour repeat. Doubt true cardiac etiology. He continues to be pain free. <HUY Lorenz - Last Filed: 05/16/20 15:21> Reevaluation #2: Repeat troponin trended down. He is stable for discharge home with plans to follow up with his PCP as needed. <HUY Lorenz - Last Filed: 05/16/20 15:21> MDM - Chest Pain Lab Data Attestation: I reviewed the patient's lab results. <HUY Lorenz - Last Filed: 05/16/20 15:21> Result diagrams: : 05/16/20 10:50 05/16/20 10:50 <HUY Lorenz - Last Filed: 05/16/20 15:21> Labs: Lab Results 05/16/20 05/16/20 05/16/20 Range/Units 10:50 10:50 10:50 WBC 6.7 (4.8-10.8) X10*3/uL RBC 5.30 (4.60-5.80) X10*6/uL Hgb 15.5 D (14.0-18.0) g/dl Hct 46.5 (42-52) % MCV 87.7 (80-98) fL MCH 29.2 (27.0-33.0) pg MCHC 33.3 (31.0-36.0) g/dl RDW 12.2 (11.0-16.0) % Plt Count 260 (160-400) X10*3/uL MPV 10.9 (9.4-12.4) fL Immature Gran % (Auto) 0.3 (0.0-0.4) % Neut % (Auto) 69.3 (45-73) % Lymph % (Auto) 20.1 (20-40) % [place] % (Auto) 8.2 (2-11) % Eos % (Auto) 1.8 (0-4) % Baso % (Auto) 0.3 (0-2) % Lymph # (Auto) 1.4 (1.2-4.9) X10*3/uL [place] # (Auto) 0.6 (0.1-1.2) X10*3/uL Eos # (Auto) 0.1 (0.0-0.4) X10*3/uL Baso # (Auto) 0.0 (0.0-0.2) X10*3/uL Abs Immat Gran (auto) 0.02 (0.00-0.03) X10*3/uL Absolute Neuts (auto) 4.6 (2.0-8.3) X10*3/uL Absolute Nucleated RBC 0.000 (0.0-0.012) X10*3/uL Nucleated RBC % (auto) 0.0 (0.0-0.2) /100WBC Hold Blue Top Sodium 141 (135-145) mmol/L Potassium 4.5 (3.3-5.1) mmol/L Chloride 103 (96-108) mmol/L Carbon Dioxide 27 (22-29) mmol/L Anion Gap 16 (12-20) BUN 20 H (9-16) mg/dL Creatinine 1.21 (0.5-1.4) mg/dL Estim Creat Clear Calc 81.5 Estimated GFR > 60 Random Glucose 103 (60-115) mg/dL Calcium 9.8 D (8.4-10.2) mg/dL Magnesium 2.2 (1.6-2.6) mg/dL Total Bilirubin 0.5 (0.0-1.0) mg/dL Direct Bilirubin < 0.2 (0.0-0.5) mg/dL AST 28 (5-37) U/L ALT 41 H (0-40) U/L Alkaline Phosphatase 67 (39-117) U/L Troponin I High Sens 6.9 (<3.5-35.0) ng/L Total Protein 8.2 H (6.5-8.0) g/dL Albumin 4.8 (3.5-5.0) g/dL Urine Color Urine Appearance Urine pH (5.0-8.0) Ur Specific [place] (1.005-1.025) Urine Protein (NEG-TRACE) MG/DL Urine Glucose (UA) (NEG) MG/DL Urine Ketones (NEG) MG/DL Urine Blood (NEG) Urine Nitrite (NEG) Ur Leukocyte Esterase (NEG) 05/16/20 05/16/20 05/16/20 Range/Units 10:50 10:50 14:36 WBC (4.8-10.8) X10*3/uL RBC (4.60-5.80) X10*6/uL Hgb (14.0-18.0) g/dl Hct (42-52) % MCV (80-98) fL MCH (27.0-33.0) pg MCHC (31.0-36.0) g/dl RDW (11.0-16.0) % Plt Count (160-400) X10*3/uL MPV (9.4-12.4) fL Immature Gran % (Auto) (0.0-0.4) % Neut % (Auto) (45-73) % Lymph % (Auto) (20-40) % [place] % (Auto) (2-11) % Eos % (Auto) (0-4) % Baso % (Auto) (0-2) % Lymph # (Auto) (1.2-4.9) X10*3/uL [place] # (Auto) (0.1-1.2) X10*3/uL Eos # (Auto) (0.0-0.4) X10*3/uL Baso # (Auto) (0.0-0.2) X10*3/uL Abs Immat Gran (auto) (0.00-0.03) X10*3/uL Absolute Neuts (auto) (2.0-8.3) X10*3/uL Absolute Nucleated RBC (0.0-0.012) X10*3/uL Nucleated RBC % (auto) (0.0-0.2) /100WBC Hold Blue Top SEE NOTE Sodium (135-145) mmol/L Potassium (3.3-5.1) mmol/L Chloride (96-108) mmol/L Carbon Dioxide (22-29) mmol/L Anion Gap (12-20) BUN (9-16) mg/dL Creatinine (0.5-1.4) mg/dL Estim Creat Clear Calc Estimated GFR Random Glucose (60-115) mg/dL Calcium (8.4-10.2) mg/dL Magnesium (1.6-2.6) mg/dL Total Bilirubin (0.0-1.0) mg/dL Direct Bilirubin (0.0-0.5) mg/dL AST (5-37) U/L ALT (0-40) U/L Alkaline Phosphatase (39-117) U/L Troponin I High Sens 6.5 (<3.5-35.0) ng/L Total Protein (6.5-8.0) g/dL Albumin (3.5-5.0) g/dL Urine Color YELLOW Urine Appearance CLEAR Urine pH 6.0 (5.0-8.0) Ur Specific [place] 1.020 (1.005-1.025) Urine Protein NEG (NEG-TRACE) MG/DL Urine Glucose (UA) NEG (NEG) MG/DL Urine Ketones NEG (NEG) MG/DL Urine Blood NEG (NEG) Urine Nitrite NEG (NEG) Ur Leukocyte Esterase NEG (NEG) <HUY Lorenz - Last Filed: 05/16/20 15:21> Lab Results 05/16/20 05/16/20 05/16/20 Range/Units 10:50 10:50 10:50 WBC 6.7 (4.8-10.8) X10*3/uL RBC 5.30 (4.60-5.80) X10*6/uL Hgb 15.5 D (14.0-18.0) g/dl Hct 46.5 (42-52) % MCV 87.7 (80-98) fL MCH 29.2 (27.0-33.0) pg MCHC 33.3 (31.0-36.0) g/dl RDW 12.2 (11.0-16.0) % Plt Count 260 (160-400) X10*3/uL MPV 10.9 (9.4-12.4) fL Immature Gran % (Auto) 0.3 (0.0-0.4) % Neut % (Auto) 69.3 (45-73) % Lymph % (Auto) 20.1 (20-40) % [place] % (Auto) 8.2 (2-11) % Eos % (Auto) 1.8 (0-4) % Baso % (Auto) 0.3 (0-2) % Lymph # (Auto) 1.4 (1.2-4.9) X10*3/uL [place] # (Auto) 0.6 (0.1-1.2) X10*3/uL Eos # (Auto) 0.1 (0.0-0.4) X10*3/uL Baso # (Auto) 0.0 (0.0-0.2) X10*3/uL Abs Immat Gran (auto) 0.02 (0.00-0.03) X10*3/uL Absolute Neuts (auto) 4.6 (2.0-8.3) X10*3/uL Absolute Nucleated RBC 0.000 (0.0-0.012) X10*3/uL Nucleated RBC % (auto) 0.0 (0.0-0.2) /100WBC Hold Blue Top Sodium 141 (135-145) mmol/L Potassium 4.5 (3.3-5.1) mmol/L Chloride 103 (96-108) mmol/L Carbon Dioxide 27 (22-29) mmol/L Anion Gap 16 (12-20) BUN 20 H (9-16) mg/dL Creatinine 1.21 (0.5-1.4) mg/dL Estim Creat Clear Calc 81.5 Estimated GFR > 60 Random Glucose 103 (60-115) mg/dL Calcium 9.8 D (8.4-10.2) mg/dL Magnesium 2.2 (1.6-2.6) mg/dL Total Bilirubin 0.5 (0.0-1.0) mg/dL Direct Bilirubin < 0.2 (0.0-0.5) mg/dL AST 28 (5-37) U/L ALT 41 H (0-40) U/L Alkaline Phosphatase 67 (39-117) U/L Troponin I High Sens 6.9 (<3.5-35.0) ng/L Total Protein 8.2 H (6.5-8.0) g/dL Albumin 4.8 (3.5-5.0) g/dL Urine Color Urine Appearance Urine pH (5.0-8.0) Ur Specific [place] (1.005-1.025) Urine Protein (NEG-TRACE) MG/DL Urine Glucose (UA) (NEG) MG/DL Urine Ketones (NEG) MG/DL Urine Blood (NEG) Urine Nitrite (NEG) Ur Leukocyte Esterase (NEG) 05/16/20 05/16/20 05/16/20 Range/Units 10:50 10:50 14:36 WBC (4.8-10.8) X10*3/uL RBC (4.60-5.80) X10*6/uL Hgb (14.0-18.0) g/dl Hct (42-52) % MCV (80-98) fL MCH (27.0-33.0) pg MCHC (31.0-36.0) g/dl RDW (11.0-16.0) % Plt Count (160-400) X10*3/uL MPV (9.4-12.4) fL Immature Gran % (Auto) (0.0-0.4) % Neut % (Auto) (45-73) % Lymph % (Auto) (20-40) % [place] % (Auto) (2-11) % Eos % (Auto) (0-4) % Baso % (Auto) (0-2) % Lymph # (Auto) (1.2-4.9) X10*3/uL [place] # (Auto) (0.1-1.2) X10*3/uL Eos # (Auto) (0.0-0.4) X10*3/uL Baso # (Auto) (0.0-0.2) X10*3/uL Abs Immat Gran (auto) (0.00-0.03) X10*3/uL Absolute Neuts (auto) (2.0-8.3) X10*3/uL Absolute Nucleated RBC (0.0-0.012) X10*3/uL Nucleated RBC % (auto) (0.0-0.2) /100WBC Hold Blue Top SEE NOTE Sodium (135-145) mmol/L Potassium (3.3-5.1) mmol/L Chloride (96-108) mmol/L Carbon Dioxide (22-29) mmol/L Anion Gap (12-20) BUN (9-16) mg/dL Creatinine (0.5-1.4) mg/dL Estim Creat Clear Calc Estimated GFR Random Glucose (60-115) mg/dL Calcium (8.4-10.2) mg/dL Magnesium (1.6-2.6) mg/dL Total Bilirubin (0.0-1.0) mg/dL Direct Bilirubin (0.0-0.5) mg/dL AST (5-37) U/L ALT (0-40) U/L Alkaline Phosphatase (39-117) U/L Troponin I High Sens 6.5 (<3.5-35.0) ng/L Total Protein (6.5-8.0) g/dL Albumin (3.5-5.0) g/dL Urine Color YELLOW Urine Appearance CLEAR Urine pH 6.0 (5.0-8.0) Ur Specific [place] 1.020 (1.005-1.025) Urine Protein NEG (NEG-TRACE) MG/DL Urine Glucose (UA) NEG (NEG) MG/DL Urine Ketones NEG (NEG) MG/DL Urine Blood NEG (NEG) Urine Nitrite NEG (NEG) Ur Leukocyte Esterase NEG (NEG) <Cirilo Forrest MD - Last Filed: 06/03/20 13:32> ECG Data ECG #1: Attestation: I personally reviewed and interpreted this ECG as follows: <HUY Lorenz - Last Filed: 05/16/20 15:21> ECG interpretation date: 05/16/20 <HUY Lorenz - Last Filed: 05/16/20 15:21> ECG interpretation time: 10:59 <HUY Lorenz - Last Filed: 05/16/20 15:21> Interpretation: normal sinus rhythm, HR 90 bpm, normal OK interval, normal QTc, nonspecific T wave abnormality, no ST segment elevations or depressions <HUY Lorenz - Last Filed: 05/16/20 15:21> Scores Heart Score History: -1- moderately suspicious <HUY Lorenz - Last Filed: 05/16/20 15:21> ECG: -0- normal <HUY Lorenz - Last Filed: 05/16/20 15:21> Age: -0- < or = 45 <HUY Lorenz - Last Filed: 05/16/20 15:21> Risk factory: -0- no risk factors known <HUY Lorenz - Last Filed: 05/16/20 15:21> Troponin: -0- < or = normal limit <HUY Lorenz - Last Filed: 05/16/20 15:21> Score: 1 <HUY Lorenz - Last Filed: 05/16/20 15:21> Risk: 1.7% <HUY Lorenz - Last Filed: 05/16/20 15:21> Critical Care Time Critical Care Time Critical Care Time: No <HUY Lorenz - Last Filed: 05/16/20 15:21> Discharge Plan Discharge Clinical Impression: Atypical chest pain <HUY Lorenz - Last Filed: 05/16/20 15:21> Patient Disposition: Home, Self-Care <HUY Lorenz - Last Filed: 05/16/20 15:21> Instructions: Chest Pain (ED) <HUY Lorenz - Last Filed: 05/16/20 15:21> Additional Instructions: Your workup in the ER today was largely unremarkable. It is very unlikely that your chest pain is caused by any life threatening causes. Stress and anxiety are likely contributing. Rest. No strenuous activity until you are feeling better. Recommend following up with your doctor this week. If you have recurrent chest pain or any other concerning symptoms come back to the ER for futher evaluation. <HUY Lorenz - Last Filed: 05/16/20 15:21> Prescriptions: No Action ciprofloxacin HCl [Ciloxan] 0.3 % drops See Rx Instructions .ROUTE .COMPLEX Qty: 10 RF: 0 tramadol 50 mg tablet 50 mg PO Q6H PRN (Reason: pain (scale score 4-6)) Qty: 14 RF: 0 tamsulosin 0.4 mg capsule 0.4 mg PO BEDTIME Qty: 14 RF: 0 phenazopyridine [Pyridium] 100 mg tablet 100 mg PO TID PRN (Reason: spasm) 4 Days Qty: 12 RF: 0 erythromycin 5 mg/gram (0.5 %) ointment 0.5 inch ophthalmic (eye) QID Qty: 3.5 RF: 0 amoxicillin 500 mg capsule 500 mg PO TID 7 Days Qty: 21 RF: 0 ibuprofen 600 mg tablet 600 mg PO Q6H PRN (Reason: pain) Qty: 20 RF: 0 <HUY Lorenz - Last Filed: 05/16/20 15:21> Stand Alone Forms: Work/School Release <HUY Lorenz - Last Filed: 05/16/20 15:21> Interventions: ED Discharge Assessment Last Done: 05/16/20 15:26 <HUY Lorenz - Last Filed: 05/16/20 15:21> Discharge Date/Time: 05/16/20 15:26 <HUY Lorenz - Last Filed: 05/16/20 15:21>
[2020-05-16 11:24] LABS: Alanine Aminotransferase 41 U/L (0-40); Albumin Level 4.8 g/dL (3.5-5.0); Alkaline Phosphatase 67 U/L (39-117); Anion Gap 16 (12-20); Aspartate Amino Transferase 28 U/L (5-37); Bilirubin Direct < 0.2 mg/dL (0.0-0.5); Bilirubin Total 0.5 mg/dL (0.0-1.0); Blood Urea Nitrogen 20 mg/dL (9-16); Calcium 9.8 mg/dL (8.4-10.2); Carbon Dioxide 27 mmol/L (22-29); Chloride 103 mmol/L (96-108); Creatinine Clr Calc Pharmacy 81.5; Estimated Glomerular Filt Rate > 60; Glucose Random 103 mg/dL (60-115); Magnesium 2.2 mg/dL (1.6-2.6); Potassium 4.5 mmol/L (3.3-5.1); Sodium 141 mmol/L (135-145); Total Protein 8.2 g/dL (6.5-8.0)
[2020-05-16 11:30] LABS: Troponin-I High Sensitivity 6.9 ng/L (<3.5-35.0)
[2020-05-16 12:00] VITALS: BP 115/72; PULSE 81; RESP 21; O2SAT 97
[2020-05-16 15:09] LABS: Troponin-I High Sensitivity 6.5 ng/L (<3.5-35.0)
== END 2020-05-16 15:26 | disposition home or self-care (01) ==
PROVIDERS: Physician Assistant; Emergency Provider Emergency Medicine
DX: R07.89 Other chest pain (principal); J45.909 Unspecified asthma, uncomplicated; Z87.442 Personal history of urinary calculi; Z79.899 Other long term (current) drug therapy
CPT/HCPCS: 36415; 71045; 80048; 80076; 81003; 83735; 84484; 85025; 93005; 99283; 99284

== ENCOUNTER 2020-08-11 11:38 | Emergency (ER) | payer MEDICAID, SELFPAY ==
[2020-08-11 12:20] VITALS: BP 101/61; PULSE 93; RESP 18; TEMP 36.7; O2SAT 97; BMI 26.6
--- NOTE | 2020-08-11 12:29 | ED.SKABFB ---
HPI - Skin/Abscess/Foreign Bdy General Chief complaint: Skin/Abscess/Foreign Body Stated complaint: abscess Time Seen by Provider: 08/11/20 12:23 Source: patient Mode of arrival: ambulatory Limitations: no limitations History of Present Illness HPI narrative: 40 yo male presenting with painful lump on his left underarm for the last 3 days. He shaves his underarms and has have a large, tender, red area that he reports is an abscess. He has a history of similar episodes but has never required drainage before. He has no fever or chills. No injury to the area. MD complaint: abscess/boil Onset (ago): day(s) (3) Tetanus up to date: yes Location: LUE Severity: moderate Severity scale (1-10): 6 Quality: aching Pain Consistency: intermittent Relieving factors: movement Exacerbating factors: none Associated symptoms: denies other symptoms Treatments prior to arrival: attempted to drain pus at home Related Data Previous Rx's Medication Instructions Recorded phenazopyridine [Pyridium] 100 mg PO TID PRN 4 Days #12 tab 12/18/19 tamsulosin 0.4 mg PO BEDTIME #14 cap 12/18/19 tramadol 50 mg PO Q6H PRN #14 tab 12/18/19 erythromycin 0.5 inch OPHTHALMIC (EYE) QID #3.5 04/25/20 g ciprofloxacin HCl [Ciloxan] See Rx Instructions .ROUTE 04/26/20 .COMPLEX #10 ml amoxicillin 500 mg PO TID 7 Days #21 cap 05/08/20 ibuprofen 600 mg PO Q6H PRN #20 tab 05/08/20 cephalexin 500 mg PO Q6H 5 Days #20 cap 08/11/20 Allergies Allergy/AdvReac Type Severity Reaction Status Date / Time codeine Allergy Itching Verified 05/16/20 10:37 Review of Systems Review of Systems: Constitutional: No Fever, No Chills ENT/Mouth: No sore throat, No Rhinorrhea, No Swallowing Difficulty Cardiovascular: No Chest Pain, No SOB Respiratory: No Cough, No Sputum, No Wheezing, No dyspnea Neuro: No Weakness, No Numbness, No Dizziness, No Headache Heme/Lymph: No Bruising, No Lymphadenopathy PMFSH Past Medical History Medical History Asthma Renal stones Wilm's tumor (nephroblastoma) Surgical History H/O right nephrectomy Social History Social History Advance Directives: No Advance Directives Information Provided: No Physical Exam Vital Signs: Vital Signs: Last Vital Signs Temp 98.0 F 08/11/20 12:20 Pulse 93 08/11/20 12:20 Resp 18 08/11/20 12:20 BP 101/61 08/11/20 12:20 Pulse Ox 97 08/11/20 12:20 Body Mass Index 26.6 Appearance: Alert. Oriented X3. No acute distress. HEENT: normal inspection CVS: Normal heart rate and rhythm. Pulses normal. Respiratory: No respiratory distress. Skin: Skin warm and dry. Normal skin color. Normal skin turgor. No rashes. Extremities: left axilla with 3cm warm, tender boil with central area of fluctance, moderate surrounding ertythema Neuro: Oriented X 3. No motor deficit. No sensory deficit. Course Course Course Narrative: 40 y/o male presenting with axillary abscess amenable to drainage. Will treat with kelfex for surrounding cellultiis. Tolerated I&D well, stable for d/c. Patient counseled on management and prevention. Procedures Abscess I/D Site: upper extremity Side (if applicable): left Technique: incised with blade Sent for culture/gram staining?: No Irrigation: Yes Packing used?: none Complications: bleeding Discharge Plan Discharge Clinical Impression: Abscess of skin or subcutaneous tissue Qualifiers: Site of cutaneous abscess: extremity Site of cutaneous abscess of extremity: axilla Laterality: left Qualified Code(s): L02.412 - Cutaneous abscess of left axilla Patient Disposition: Home, Self-Care Instructions: Abscess Incision and Drainage (DC) Additional Instructions: Use warm compresses on the area several times per day. Take the prescribed antibiotic as directed. Do not shave the area. If you have worsening redness, swelling, pain or any other concerning symptoms come back to the ER for further evaluation. Prescriptions: New cephalexin 500 mg capsule 500 mg PO Q6H 5 Days Qty: 20 RF: 0 No Action ciprofloxacin HCl [Ciloxan] 0.3 % drops See Rx Instructions .ROUTE .COMPLEX Qty: 10 RF: 0 tramadol 50 mg tablet 50 mg PO Q6H PRN (Reason: pain (scale score 4-6)) Qty: 14 RF: 0 tamsulosin 0.4 mg capsule 0.4 mg PO BEDTIME Qty: 14 RF: 0 phenazopyridine [Pyridium] 100 mg tablet 100 mg PO TID PRN (Reason: spasm) 4 Days Qty: 12 RF: 0 erythromycin 5 mg/gram (0.5 %) ointment 0.5 inch ophthalmic (eye) QID Qty: 3.5 RF: 0 amoxicillin 500 mg capsule 500 mg PO TID 7 Days Qty: 21 RF: 0 ibuprofen 600 mg tablet 600 mg PO Q6H PRN (Reason: pain) Qty: 20 RF: 0 Interventions: ED Discharge Assessment Last Done: 08/11/20 12:48 Discharge Date/Time: 08/11/20 12:50
[2020-08-11] MEDS: Lidocaine HCl 2 % MPF 5 ML VIAL INFILTRATI (12:39)
== END 2020-08-11 12:50 | disposition home or self-care (01) ==
PROVIDERS: Emergency Provider Emergency Medicine; PCP Nurse Practitioner Adult Health
DX: L02.412 Cutaneous abscess of left axilla (principal); L03.112 Cellulitis of left axilla
CPT/HCPCS: 10060; 99283; 99284

== ENCOUNTER 2020-09-01 22:20 | Emergency (ER) | payer MEDICAID, SELFPAY ==
[2020-09-01 22:48] VITALS: BP 110/79; PULSE 106; RESP 16; TEMP 36.8; O2SAT 96; BMI 26.6
--- NOTE | 2020-09-02 00:42 | ED_ITS ---
HPI - Skin/Abscess/Foreign Bdy General Chief complaint: Skin/Abscess/Foreign Body Stated complaint: Abscess Time Seen by Provider: 09/02/20 00:34 Source: patient Mode of arrival: ambulatory Limitations: no limitations History of Present Illness HPI narrative: 40-year-old male presents with left-sided axilla abscess. Stated that he presented 2 weeks ago to have it drained and took entire course of doxycycline however the swelling and redness has returned and hurts more than it did when he 1st had it drained. And does not report any fevers or chills, denies chest pain or pressure, palpitations, shortness of breath, shortness of breath on exertion, abdominal pain, abdominal distention, nausea, vomiting, diarrhea, constipation, or any other concerning symptoms. MD complaint: abscess/boil Onset (ago): week(s) Tetanus up to date: yes Location: LUE Severity: moderate Severity scale (1-10): 6 Quality: burning and aching Pain Consistency: constant Relieving factors: none Exacerbating factors: palpation and movement Context: recent antibiotic Associated symptoms: denies other symptoms Treatments prior to arrival: antibiotic Related Data Previous Rx's Medication Instructions Recorded phenazopyridine [Pyridium] 100 mg PO TID PRN 4 Days #12 tab 12/18/19 tamsulosin 0.4 mg PO BEDTIME #14 cap 12/18/19 tramadol 50 mg PO Q6H PRN #14 tab 12/18/19 erythromycin 0.5 inch OPHTHALMIC (EYE) QID #3.5 04/25/20 g ciprofloxacin HCl [Ciloxan] See Rx Instructions .ROUTE 04/26/20 .COMPLEX #10 ml amoxicillin 500 mg PO TID 7 Days #21 cap 05/08/20 ibuprofen 600 mg PO Q6H PRN #20 tab 05/08/20 cephalexin 500 mg PO Q6H 5 Days #20 cap 08/11/20 doxycycline monohydrate 100 mg PO BID 10 Days #20 cap 09/02/20 sulfamethoxazole-trimethoprim 1 tab PO Q12H 7 Days #14 tab 09/02/20 [Bactrim DS] Allergies Allergy/AdvReac Type Severity Reaction Status Date / Time codeine Allergy Itching Verified 05/16/20 10:37 Review of Systems Review of Systems: Constitutional: No Fever, No Chills ENT/Mouth: No Ear Pain, No Hoarseness, No sore throat Eyes: No Eye Pain, No Swelling, No Redness, No Foreign Body Cardiovascular: No Chest Pain, No SOB Respiratory: No Cough, No Dyspnea Gastrointestinal: No Nausea, No Vomiting, No Diarrhea, No abdominal Pain Genitourinary: No Dysuria, No Hematuria Musculoskeletal: positive left axilla pain, No Myalgias, No Joint Swelling Skin: Positive left axilla abscess, No Skin lacerations, No rash Neuro: No Weakness, No Numbness, No Paresthesias, No Loss of Consciousness, No Dizziness, No Headache Psych: No Anxiety/Panic, No Depression Heme/Lymph: no easy bruising, no Lymphadenopathy Endocrine: No Polyuria, No Polydipsia Yes all other systems are reviewed and are negative PMFSH Past Medical History Attestation statement: The following information was validated with the patient. Source: old records reviewed Medical History Asthma Renal stones Wilm's tumor (nephroblastoma) Surgical History H/O right nephrectomy Social History Social History Advance Directives: No Physical Exam Vital Signs: Vital Signs: Last Vital Signs Temp 98.2 F 09/01/20 22:48 Pulse 106 H 09/01/20 22:48 Resp 16 09/01/20 22:48 BP 110/79 09/01/20 22:48 Pulse Ox 96 09/01/20 22:48 Body Mass Index 26.6 Appearance: Alert. Oriented X3. Mild distress. Eyes: Pupils equal, round and reactive to light. ENT: Pharynx normal. Neck: Normal inspection. Neck supple. CVS: Normal heart rate and rhythm. Pulses normal. Respiratory: No respiratory distress. Breath sounds normal. Abdomen: Left axilla abscess, Soft and nontender. Skin: Skin warm and dry. Normal skin color. Normal skin turgor. Extremities: No lower extremity edema. Neuro: No motor deficit. No sensory deficit. Course Course Course Narrative: 40-year-old male presents with recurrent left axilla abscess consistent with hidradenitis suppurative. Was treated approximately 2 weeks ago. He does have an elevated heart rate at 106, will draw labs to rule out sepsis however patient is nontoxic and afebrile at this time so sepsis unlikely. Fluid resuscitation will not be initiated at this time as I do not feel that this patient fits sepsis criteria. Area of abscess cleaned with Betadine, prepped and draped in sterile fashion, incised with 11 blade, approximately 5 mL of purulent sanguinous drainage from the site. Approximately 3 cm of packing iodoform placed into the incision, dressed with sterile dressing. Patient will return in 3 days to have packing removed. Will give cefuroxime and Bactrim. Patient verbalized understanding of and agrees to plan of care discharge home. Procedures Abscess I/D Site: upper extremity Side (if applicable): left Local Anesthetic: lidocaine 2% Amount of anesthesia used (mL): 6 Technique: incised with blade Amount of fluid expressed (mL): 5 Sent for culture/gram staining?: No Irrigation: No Packing used?: iodoform MDM - Skin/Abscess/Foreign Bdy Differential Diagnosis Differential diagnosis: Likely abscess of skin or subcutaneous tissue Medical Records Attestation: I reviewed the patient's medical records. Lab Data Attestation: I reviewed the patient's lab results. Result diagrams: 09/02/20 01:20 09/02/20 01:20 Labs: Lab Results 09/02/20 09/02/20 Range/Units 01:20 01:20 WBC 6.3 (4.8-10.8) X10*3/uL RBC 4.58 L (4.60-5.80) X10*6/uL Hgb 13.1 L (14.0-18.0) g/dl Hct 40.8 L (42-52) % MCV 89.1 (80-98) fL MCH 28.6 (27.0-33.0) pg MCHC 32.1 (31.0-36.0) g/dl RDW 12.4 (11.0-16.0) % Plt Count 219 (160-400) X10*3/uL MPV 10.8 (9.4-12.4) fL Immature Gran % (Auto) 0.5 H (0.0-0.4) % Neut % (Auto) 62.9 (45-73) % Lymph % (Auto) 24.8 (20-40) % Pershing % (Auto) 9.5 (2-11) % Eos % (Auto) 2.1 (0-4) % Baso % (Auto) 0.2 (0-2) % Lymph # (Auto) 1.6 (1.2-4.9) X10*3/uL Pershing # (Auto) 0.6 (0.1-1.2) X10*3/uL Eos # (Auto) 0.1 (0.0-0.4) X10*3/uL Baso # (Auto) 0.0 (0.0-0.2) X10*3/uL Abs Immat Gran (auto) 0.03 (0.00-0.03) X10*3/uL Absolute Neuts (auto) 4.0 (2.0-8.3) X10*3/uL Absolute Nucleated RBC 0.000 (0.0-0.012) X10*3/uL Nucleated RBC % (auto) 0.0 (0.0-0.2) /100WBC Lactic Acid 1.6 (0.5-2.0) mmol/L Discharge Plan Discharge Clinical Impression: Axillary hidradenitis suppurativa Cellulitis Qualifiers: Site of cellulitis: extremity Site of cellulitis of extremity: axilla Laterality: left Qualified Code(s): L03.112 - Cellulitis of left axilla Patient Disposition: Home, Self-Care Instructions: Cellulitis (ED), Hidradenitis Suppurativa (ED) Additional Instructions: You were evaluated for recurrent abscess to the left axilla. We cut open and d rained this abscess. We placed iodoform packing into the wound. Please keep this in place for 3 days and return for wound evaluation. This may fall out on its own. Please take cefuroxime Prescriptions: New doxycycline monohydrate 100 mg capsule 100 mg PO BID 10 Days Qty: 20 RF: 0 sulfamethoxazole-trimethoprim [Bactrim DS] 800-160 mg tablet 1 tab PO Q12H 7 Days Qty: 14 RF: 0 No Action ciprofloxacin HCl [Ciloxan] 0.3 % drops See Rx Instructions .ROUTE .COMPLEX Qty: 10 RF: 0 cephalexin 500 mg capsule 500 mg PO Q6H 5 Days Qty: 20 RF: 0 tramadol 50 mg tablet 50 mg PO Q6H PRN (Reason: pain (scale score 4-6)) Qty: 14 RF: 0 tamsulosin 0.4 mg capsule 0.4 mg PO BEDTIME Qty: 14 RF: 0 phenazopyridine [Pyridium] 100 mg tablet 100 mg PO TID PRN (Reason: spasm) 4 Days Qty: 12 RF: 0 erythromycin 5 mg/gram (0.5 %) ointment 0.5 inch ophthalmic (eye) QID Qty: 3.5 RF: 0 amoxicillin 500 mg capsule 500 mg PO TID 7 Days Qty: 21 RF: 0 ibuprofen 600 mg tablet 600 mg PO Q6H PRN (Reason: pain) Qty: 20 RF: 0
[2020-09-02] MEDS: Lidocaine HCl 2 % MPF 5 ML VIAL 10 ML SUBCUT (00:51)
[2020-09-02 01:25] VITALS: BP 113/61; PULSE 89; RESP 16; O2SAT 98
[2020-09-02 01:25] LABS: Basophils Percent Auto 0.2 % (0-2); Eosinophils Absolute Auto 0.1 X10*3/uL (0.0-0.4); Eosinophils Percent Auto 2.1 % (0-4); Hematocrit 40.8 % (42-52); Hemoglobin 13.1 g/dl (14.0-18.0); Imm Gran Abs Auto 0.03 X10*3/uL (0.00-0.03); Imm Gran Pct Auto 0.5 % (0.0-0.4); Lymphocytes Absolute Auto 1.6 X10*3/uL (1.2-4.9); Lymphocytes Percent Auto 24.8 % (20-40); MANUAL DIFF FLAG NO; Mean Corpuscular HGB Conc 32.1 g/dl (31.0-36.0); Mean Corpuscular Hemoglobin 28.6 pg (27.0-33.0); Mean Corpuscular Volume 89.1 fL (80-98); Mean Platelet Volume 10.8 fL (9.4-12.4); Monocytes Absolute Auto 0.6 X10*3/uL (0.1-1.2); Monocytes Percent Auto 9.5 % (2-11); Neutrophils Percent Auto 62.9 % (45-73); Platelet Count 219 X10*3/uL (160-400); Red Blood Count 4.58 X10*6/uL (4.60-5.80); Red Cell Distribution Width 12.4 % (11.0-16.0); White Blood Count 6.3 X10*3/uL (4.8-10.8)
[2020-09-02 01:39] LABS: Lactic Acid 1.6 mmol/L (0.5-2.0)
[2020-09-02 01:51] LABS: Anion Gap 12 (12-20); Blood Urea Nitrogen 19 mg/dL (9-16); Carbon Dioxide 29 mmol/L (22-29); Chloride 104 mmol/L (96-108); Creatinine Clr Calc Pharmacy 67.9; Estimated Glomerular Filt Rate > 60; Glucose Random 108 mg/dL (60-115); Potassium 4.3 mmol/L (3.3-5.1); Sodium 141 mmol/L (135-145)
== END 2020-09-02 01:58 | disposition home or self-care (01) ==
PROVIDERS: Emergency Provider Student in an Organized Health Care Education/Training Program; PCP Nurse Practitioner Adult Health
DX: L73.2 Hidradenitis suppurativa (principal); L02.412 Cutaneous abscess of left axilla; L03.112 Cellulitis of left axilla
CPT/HCPCS: 10060; 36415; 80048; 83605; 85025; 87040; 99283; 99284

== ENCOUNTER 2022-02-26 06:53 | Emergency (ER) | payer MEDICAID, SELFPAY ==
[2022-02-26 07:04] VITALS: BP 135/81; PULSE 100; RESP 19; TEMP 36.6; O2SAT 98; BMI 25.2
== END 2022-02-26 07:48 | disposition left against medical advice (07) ==
LOC: HO.ED 07:43
PROVIDERS: Emergency Provider Emergency Medicine; PCP Nurse Practitioner Adult Health
DX: R20.0 Anesthesia of skin (principal)
CPT/HCPCS: 99281